=== PATIENT | male | born 1955 | race Caucasian/White ===

== ENCOUNTER 2018-04-04 09:54 | Emergency (ER) | payer OTHER ==
[2018-04-04 10:13] VITALS: BP 207/104
--- NOTE | 2018-04-04 10:37 | UC ---
Skin Complaint HPI - HPI Summary HPI Summary: cyst on the tailbone x 2 days + swelling, painful to touch , started draining yesterday and stopped today no fever, no chills - History of Current Complaint Chief Complaint: [facility] Time Seen by Provider: 04/04/18 10:21 Stated Complaint: SKIN COMPLAINT BACK Hx Obtained From: Patient Onset/Duration: Sudden Onset, Lasting Days - 2, Still Present Timing: Constant Onset Severity: Moderate Current Severity: Moderate Pain Intensity: 0 Location: Discrete - tailbone Character: Swelling, Pain, Redness, Raised, Painful Aggravating Factor(s): Touch Alleviating Factor(s): Nothing Associated Signs & Symptoms: Positive: Drainage, Tenderness. Negative: Nausea, Vomiting, Numbness, Thirst, Diaphoresis, Weakness, Fever, Chills, Cough - Allergy/Home Medications Allergies/Adverse Reactions: Allergies Allergy/AdvReac Type Severity Reaction Status Date / Time No Known Allergies Allergy Verified 04/04/18 10:13 Home Medications: Home Medications Lisinopril TAB* [Prinivil TAB*] 10 mg PO DAILY 04/04/18 [History Confirmed 04/04] PMH/Surg Hx/FS Hx/Imm Hx Cardiovascular History: Hypertension - Surgical History Surgical History: None - Family History Known Family History: Positive: Hypertension - Social History Alcohol Use: None Substance Use Type: None Smoking Status (MU): Never Smoked Tobacco Review of Systems All Other Systems Reviewed And Are Negative: Yes Constitutional: Positive: Negative Eyes: Positive: Negative ENT: Positive: Negative Respiratory: Positive: Negative Is Patient Immunocompromised?: No Physical Exam Triage Information Reviewed: Yes Appearance: Pain Distress, Obese Vital Signs: Initial Vital Signs Temp 98.5 F 04/04/18 10:10 Pulse 100 04/04/18 10:10 Resp 16 04/04/18 10:10 BP 207/104 04/04/18 10:10 Pulse Ox 99 04/04/18 10:10 Vital Signs Reviewed: Yes Eye Exam: Normal Eyes: Positive: Conjunctiva Clear ENT: Positive: Normal ENT inspection, Hearing grossly normal, Pharynx normal Respiratory: Positive: Chest non-tender, Lungs clear, Normal breath sounds Cardiovascular: Positive: RRR, No Murmur, Pulses Normal Skin: Positive: Other - pilonidal cyst , + erythema, mild swelling, erythema, tender to touch Course/Dx - Diagnoses Provider Diagnosis: Pilonidal cyst, Hypertension Discharge - Sign-Out/Discharge Documenting (check all that apply): Patient Departure All imaging exams completed and their final reports reviewed: No Studies - Discharge Plan Condition: Stable Disposition: HOME Prescriptions: Cephalexin CAP* [Keflex CAP*] 500 mg PO TID #30 cap Patient Education Materials: Pilonidal Cyst (ED), Hypertension (ED) Referrals: Timothy Tran MD [Primary Care Provider] - If Needed Additional Instructions: elevated blood pressure : start taking your blood pressure meds monitor your bp daily \ follow up with your pcp in one week - Billing Disposition and Condition Condition: STABLE Disposition: Home
== END 2018-04-04 10:37 | disposition home or self-care (01) ==
LOC: UCCORT 09:54
DX: L05.91 Pilonidal cyst without abscess (principal); I10 Essential (primary) hypertension
CPT/HCPCS: 99202; G0463